=== PATIENT | female | born 1970 | race Caucasian/White ===

== ENCOUNTER 2022-05-06 12:55 | Emergency (ER) | payer SELFPAY | END 2022-05-06 15:00 | disposition home or self-care (01) | LOC: ERS 12:55 | DX: K04.7 Periapical abscess without sinus (principal); E78.5 Hyperlipidemia, unspecified; I10 Essential (primary) hypertension; Z79.899 Other long term (current) drug therapy | CPT/HCPCS: 99282 ==

== ENCOUNTER 2022-05-07 11:12 | Emergency (ER) | payer SELFPAY | END 2022-05-07 12:18 | disposition home or self-care (01) | LOC: ERS 11:12 | DX: Z20.822 Contact with and (suspected) exposure to COVID-19 (principal); E78.5 Hyperlipidemia, unspecified; I10 Essential (primary) hypertension | CPT/HCPCS: 99283; U0003; U0005 ==